=== PATIENT | male | born 1995 | race Caucasian/White ===

== ENCOUNTER 2016-10-30 23:58 | Emergency (ER) | payer SELFPAY ==
[~2016-10-30] VITALS: Ht 170.2 cm; Wt 70.0 kg
[2016-10-30 23:59] VITALS: BP 161/85
== END 2016-10-31 01:22 | disposition left against medical advice (07) ==
LOC: ED 10-31 01:16
DX: F12.10 Cannabis abuse, uncomplicated (principal); Z53.21 Procedure and treatment not carried out due to patient leaving prior to being seen by health care provider